=== PATIENT | female | born 1975 | race Caucasian/White ===

== ENCOUNTER 2018-09-05 18:31 | Emergency (ER) | payer SELFPAY ==
[~2018-09-05] VITALS: Ht 152.4 cm; Wt 90.9 kg
[2018-09-05 18:38] VITALS: BP 130/99
== END 2018-09-05 23:19 | disposition left against medical advice (07) ==
LOC: EMS 18:33
DX: R23.8 Other skin changes (principal); Z53.21 Procedure and treatment not carried out due to patient leaving prior to being seen by health care provider